=== PATIENT | female | born 1930 | race Caucasian/White ===

== ENCOUNTER → 2018-07-17 | Outpatient (CLI) | payer MEDICARE, OTHER ==
[~2018-07-17] VITALS: Ht 157.5 cm; Wt 62.1 kg
[~2018-07-17] MED LIST: ACHD5005 PO; ALEN70SO3 PO; ALN70T PO; AMOX-355 PO; ASPI-586 PO; ASPI-84 PO; ASPI1CPM6 PO; ATOR10TA; CALC-80; CHOL100011; DPAS20025; DPAS20025 PO; E400C; EZET10TA5; FEXO180T; FLUT16SP22 NSEACH; FOLI1TAB7; GABA-488 PO; GBPN100C; HYDR-34; HYDR2TAB6 PO; JUICE PLUS GARDEN PO; JUICE PLUS ORCHARD PO; MESA800T3 PO; MNTL10T PO; MONT10TA24 PO; MSL400TEC; NF-ESOM40C; POLY119P5 PO; PRD20T PO; SIMV20TA3 PO; TRIA16.5; UBID100C8; VERA180C2 PO; VERA180C4 PO
[2018-07-17 15:38] VITALS: BP 123/80
[2018-07-17 16:17] LABS: BASOPHILS # (AUTO) 0.2 10^3/uL (0.0-0.1); BASOPHILS % (AUTO) 2 % (0-10); EOSINOPHILS % (AUTO) 11 % (0-10); HEMATOCRIT 35 % (35-52); HEMOGLOBIN 11.3 G/DL (11.5-16.0); LYMPHOCYTES # (AUTO) 2.2 X 10^3 (1.0-4.0); LYMPHOCYTES % (AUTO) 23 % (12-44); MEAN CORPUSCULAR HEMOGLOBIN 32 PG (25-34); MEAN CORPUSCULAR HGB CONC 33 G/DL (32-36); MEAN CORPUSCULAR VOLUME 97 FL (80-99); MEAN PLATELET VOLUME 9.6 FL (7.4-10.4); MONOCYTES # (AUTO) 1.5 X 10^3 (0.0-1.0); MONOCYTES % (AUTO) 16 % (0-12); NEUTROPHILS # (AUTO) 4.4 X 10^3 (1.8-7.8); NEUTROPHILS % (AUTO) 48 % (42-75); PLATELET COUNT 378 10^3/uL (130-400); RED BLOOD COUNT 3.57 10^6/uL (4.35-5.85); WHITE BLOOD COUNT 9.2 10^3/uL (4.3-11.0)
[2018-07-17 16:23] LABS: BILIRUBIN,URINE NEGATIVE (NEGATIVE); CLARITY,URINE VERY CLOUDY; COLOR,URINE YELLOW; GLUCOSE, URINE (UA) NEGATIVE (NEGATIVE); KETONES,URINE NEGATIVE (NEGATIVE); LEUKOCYTE ESTERASE ,URINE 3+ (NEGATIVE); NITRITE,URINE POSITIVE (NEGATIVE); PH,URINE 6 (5-9); PROTEIN,URINE 2+ (NEGATIVE); UROBILINOGEN,URINE NORMAL (NORMAL)
[2018-07-17 16:32] LABS: BUN/CREATININE RATIO 20; CALCIUM 9.8 MG/DL (8.5-10.1); CARBON DIOXIDE 22 MMOL/L (21-32); CHLORIDE 110 MMOL/L (98-107); CREATININE SERUM 0.82 MG/DL (0.60-1.30); GFR ESTIMATED > 60; GLUCOSE 105 MG/DL (70-105); POTASSIUM 4.4 MMOL/L (3.6-5.0); SODIUM 141 MMOL/L (135-145)
[2018-07-17 16:35] LABS: BACTERIA,URINE LARGE /HPF; WBC,URINE TNTC /HPF
== END ==
LOC: PREOP 15:07
PROVIDERS: ATTEND Obstetrics & Gynecology
DX: Z01.812 Encounter for preprocedural laboratory examination (principal); Z11.2 Encounter for screening for other bacterial diseases; N81.4 Uterovaginal prolapse, unspecified; R82.998 Other abnormal findings in urine
CPT/HCPCS: 36415; 80048; 81000; 85025; 87077; 87081; 87088

== ENCOUNTER 2018-07-24 09:40 | Day surgery (SDC) | payer MEDICARE, OTHER ==
[~2018-07-24] VITALS: Ht 157.5 cm; Wt 62.4 kg
[2018-07-24] VITALS (8 sets, daily range): BP systolic 102–169; BP diastolic 61–95
[2018-07-24] MEDS ORDERED: NS (IVPB) 50 ML ONE (10:06)
[2018-07-24] MEDS ORDERED: ceFAZolin 1,000 MG/10 ML (ANCEF) VIAL ONE (10:06)
[2018-07-24] MEDS ORDERED: NS (IVPB) 100 ML ONE (10:08)
[2018-07-24] MEDS ORDERED: ESTROGENS CONJ. CREAM 30 GM (PREMARIN) TUBE ONE (10:08)
[2018-07-24] MEDS ORDERED: VASOPRESSIN INJECTION 20 UNIT/ML VIAL ONE (10:08)
[2018-07-24] MEDS ORDERED: BUPIVACAINE 0.25% 30 ML (SENSORCAINE) VIAL ONE (10:09)
[2018-07-24] MEDS: LACTATED RINGERS 1,000 ML IV PRN ×2 (10:12→12:15)
[2018-07-24] MEDS ORDERED: LIDOCAINE PF 2% 5 ML (XYLOCAINE) VIAL ONE (10:14)
[2018-07-24] MEDS ORDERED: ONDANSETRON 4 MG/2 ML (SDV) Z0FRAN ONE (10:14)
[2018-07-24] MEDS ORDERED: LACTATED RINGERS 1,000 ML IV ONE (10:14)
[2018-07-24] MEDS ORDERED: proPOfol 200 MG/20 ML (DIPRIVAN) VIAL IV ONE (10:14)
[2018-07-24] MEDS ORDERED: MIDAZOLAM 2 MG/2 ML (VERSED) VIAL ONE (10:15)
[2018-07-24] MEDS ORDERED: ceFAZolin INJECTION 1,000 MG in NS (IVPB) 50 ML IV ONE (10:15)
[2018-07-24] MEDS ORDERED: fentaNYL INJECTION 100 MCG/2 ML AMP ONE ×3 (10:15→13:39)
--- NOTE | 2018-07-24 10:21 | Progress Note-Pre Operative ---
Pre-Operative Progress Note H&P Reviewed The H&P was reviewed, patient examined and no changes noted. Date Seen by Provider: Jul 24, 2018 Time Seen by Provider: 10:15 Date H&P Reviewed: Jul 24, 2018 Time H&P Reviewed: 10:00 Pre-Operative Diagnosis: COMPLETE UTEROVAGINAL PROLAPSE FER MCGINNIS DO Jul 24, 2018 10:21
--- OUTSIDE RECORDS SUMMARY | 2018-07-24 10:23 | XMS REPORT | Continuity of Care Document ---
Author Author [facility] Organization [facility] Address Unknown Phone Unavailable Allergies Active Description Code Type Severity Reaction Onset Reported/Identified Relationship to Patient Clinical Status Yes SULFA (SULFONAMIDE ANTIBIOTICS) UNKNOWN UNKNOWN Yes Sulfa (Sulfonamide Antibiotics) [id number] Drug Allergy Mild N/V, PAIN Medications Medication Packaging Start Date Stop Date Route Dosage Sig ONDANSETRON VIAL INJ 4 MG/2CC (ZOFRAN 2CC VIAL) MG 04/13/2018 04/13/2018 PRN ONCE NORMAL SALINE 500CC IV BAG INJ 0.9 % (NS 500CC IV BAG) ml 04/13/2018 04/13/2018 ONCE&2020 IBUPROFEN TAB 600 MG (MOTRIN) MG 04/13/2018 PRN ONCE NORMAL SALINE 500CC IV BAG INJ 0.9 % (NS 500CC IV BAG) ml 04/13/2018 04/13/2018 ONCE&2142 CEFTRIAXONE PREMIX IV BAG IV 1 GM/50CC (ROCEPHIN PREMIX IV BAG) GM 04/13/2018 04/13/2018 ONCE&2142 ACETAMINOPHEN ORAL TABLET 325mg(Tylenol) MG 04/13/2018 05/13/2018 PRN EVERY 4 Hour GABAPENTIN CAP 300 MG (NEURONTIN) MG 04/13/2018 05/13/2018 QID&0800,1200,1700,2200 ONDANSETRON VIAL INJ 4 MG/2CC (ZOFRAN 2CC VIAL) MG 04/13/2018 04/20/2018 PRN Q4H NORMAL SALINE 250CC IV BAG INJ 0.9 % (NS 250CC IV BAG) ml 04/13/2018 04/17/2018 EVERY 24 Hour&2202 NORMAL SALINE 500CC IV BAG INJ 0.9 % (NS 500CC IV BAG) ml 04/13/2018 04/13/2018 ONCE&2227 D5W 250CC IV BAG INJ ml 04/13/2018 04/13/2018 EVERY 24 Hour&2246 LACTATED RINGERS 1000CC IV BAG INJ ml 04/13/2018 04/20/2018 CONTINUOUSEVERY 0 Hour LACTATED RINGERS 1000CC IV BAG INJ ml 04/13/2018 04/13/2018 ONCE&2255 LEVOFLOXACIN TAB 500 MG (LEVAQUIN) MG 04/13/2018 04/13/2018 ONCE&2303 LEVOFLOXACIN PREMIX IV BAG INJ 500 MG/100CC (LEVAQUIN IV PREMIX 100CC BAG) MG 04/14/2018 04/20/2018 Daily&0000 HYDROMORPHONE TAB 2 MG (DILAUDID) MG 04/14/2018 05/13/2018 TID&0800,1400,2000 CEFEPIME PREMIX BAG IV 1 GM/50CC (MAXIPIME PREMIX BAG) GM 04/14/2018 04/20/2018 BID&0800,1999 DIPYRIDAMOLE XR CAP 25 MG-200MG (AGGRENOX) CAP 04/14/2018 05/13/2018 Daily&0900 ASPIRIN 81MG CHEWABLE TAB 81 MG (BABY ASPIRIN) MG 04/14/2018 05/13/2018 Daily&0900 MESALAMINE TAB 1200 MG (LIALDA) MG 04/14/2018 05/13/2018 Daily&0900 CEFTRIAXONE PREMIX IV BAG IV 1 GM/50CC (ROCEPHIN PREMIX IV BAG) GM 04/14/2018 04/20/2018 Daily&0900 PANTOPRAZOLE VIAL INJ 40 MG (PROTONIX IV) MG 04/14/2018 04/23/2018 Daily&0900 LACTATED RINGERS 1000CC IV BAG INJ ml 04/14/2018 04/14/2018 ONCE&1009 PANTOPRAZOLE TAB 40 MG (PROTONIX) MG 04/14/2018 04/14/2018 ONCE&0900 HYDROMORPHONE TAB 2 MG (DILAUDID) MG 04/14/2018 04/19/2018 PRN TID DIPYRIDAMOLE XR CAP 25 MG-200MG (AGGRENOX) CAP 04/14/2018 04/21/2018 BID&0800,1999 Docusate sodium 100mg oral capsule (COLACE) MG 04/14/2018 05/14/2018 BID&0800,2000 SIMVASTATIN TAB 10 MG (ZOCOR) MG 05/13/2018 QPM&2000 MILK OF MAGNESIA LIQ ml 04/14/2018 05/14/2018 PRN BID D5W 250CC IV BAG INJ ml 04/15/2018 04/15/2018 ONCE& 0035 LACTATED RINGERS 1000CC IV BAG INJ ml 04/15/2018 04/22/2018 CONTINUOUSEVERY 0 Hour LACTATED RINGERS 1000CC IV BAG INJ ml 04/16/2018 04/23/2018 CONTINUOUSEVERY 0 Hour CALMOSEPTINE OINT TUBE (RISAMINE OINT) sanjay 04/17/2018 04/24/2018 PRN QID LACTOBACILLUS BULGARIS TAB (LACTINEX BULGARIS) tab 04/17/2018 04/27/2018 QID&0800,1200,1700,2200 Normal Saline 1000cc W/KCl 20mEq ml 04/17/2018 04/24/2018 CONTINUOUSEVERY 0 Hour LEVALBUTEROL LIQ 1.25 MG/3ML (XOPENEX) MG 04/18/2018 04/18/2018 ONCE&0820 PANTOPRAZOLE TAB 40 MG (PROTONIX) MG 04/18/2018 04/24/2018 Daily&0900 FUROSEMIDE VIAL INJ 20 MG (LASIX VIAL) MG 04/18/2018 04/18/2018 ONCE&1122 HYDROMORPHONE TAB 2 MG (DILAUDID) MG 04/18/2018 04/23/2018 PRN TID ACETAMINOPHEN ORAL TABLET 325mg(Tylenol) MG 04/18/2018 05/18/2018 PRN EVERY 6 Hour LACTOBACILLUS BULGARIS TAB (LACTINEX BULGARIS) tab 04/18/2018 04/28/2018 QID&0800,1200,1700,2200 CALMOSEPTINE OINT TUBE (RISAMINE OINT) sanjay 04/18/2018 04/25/2018 PRN QID GABAPENTIN CAP 300 MG (NEURONTIN) MG 04/18/2018 05/02/2018 QID&0800,1200,1700,2200 ONDANSETRON VIAL INJ 4 MG/2CC (ZOFRAN 2CC VIAL) MG 04/18/2018 04/25/2018 PRN Q4H SIMVASTATIN TAB 10 MG (ZOCOR) MG 05/01/2018 QPM&2000 CEFEPIME PREMIX BAG IV 1 GM/50CC (MAXIPIME PREMIX BAG) GM 04/18/2018 04/20/2018 BID&0800,2000 DIPYRIDAMOLE XR CAP 25 MG-200MG (AGGRENOX) CAP 04/19/2018 05/02/2018 Daily&0900 ASPIRIN ENTERIC COATED TAB 81 MG (BABY ASPIRIN EC) MG 04/19/2018 05/02/2018 Daily&0900 PANTOPRAZOLE TAB 40 MG (PROTONIX) MG 04/19/2018 05/02/2018 Daily&0900 CEFEPIME PREMIX BAG IV 1 GM/50CC (MAXIPIME PREMIX BAG) GM 04/21/2018 04/27/2018 Q12H&0900,2100 CEFEPIME PREMIX BAG IV 1 GM/50CC (MAXIPIME PREMIX BAG) GM 04/21/2018 04/28/2018 Q8H&0600,1400,2200 VERAPAMIL SR TAB 120 MG (VERELAN) MG 04/22/2018 04/22/2018 ONCE&0917 VERAPAMIL SR TAB 180 MG (VERELAN) MG 04/23/2018 05/06/2018 Daily&0900 GABAPENTIN CAP 300 MG (NEURONTIN) MG 05/10/2018 06/09/2018 QID&0800,1200,1700,2200 NORMAL SALINE 1000CC IV BAG INJ 0.9 % (NS 1000CC IV BAG) ml 05/10/2018 05/25/2018 CONTINUOUSEVERY 0 Hour ACETAMINOPHEN ORAL TABLET 325mg(Tylenol) MG 05/10/2018 05/17/2018 PRN QID ACETAMINOPHEN SUPPOS SUP 325 MG (TYLENOL) MG 05/10/2018 06/09/2018 PRN Q6H NORMAL SALINE 1000CC IV BAG INJ 0.9 % (NS 1000CC IV BAG) ml 05/10/2018 05/25/2018 CONTINUOUSEVERY 0 Hour HYDROMORPHONE TAB 2 MG (DILAUDID) MG 05/10/2018 06/09/2018 PRN TID SIMVASTATIN TAB 10 MG (ZOCOR) MG 05/23/2018 QPM&2000 SIMVASTATIN TAB 10 MG (ZOCOR) MG 06/08/2018 QHS&2100 LACTOBACILLUS BULGARIS TAB (LACTINEX BULGARIS) tab 05/10/2018 05/17/2018 QID&0800,1200,1700,2200 GABAPENTIN CAP 300 MG (NEURONTIN) MG 05/10/2018 05/24/2018 QID&0800,1200,1700,2200 Flu vacc [id number] 65yr up(PF)) IM syringe Fluzone HIGH DOSE ML 05/11/2018 05/11/2018 ONCE&0700 PNEUMONIA VACCINE INJ (PREVNAR-13) ml 05/11/2018 05/11/2018 ONCE&0700 CALMOSEPTINE OINT TUBE (RISAMINE OINT) sanjay 05/11/2018 05/17/2018 BID&0800,2000 DIPYRIDAMOLE XR CAP 25 MG-200MG (AGGRENOX) CAP 05/11/2018 06/09/2018 Daily&0900 ASPIRIN ENTERIC COATED TAB 81 MG (BABY ASPIRIN EC) MG 05/11/2018 06/09/2018 Daily&0900 FEXOFENADINE TAB 180 MG (TINO) MG 05/11/2018 06/09/2018 Daily&0900 PANTOPRAZOLE TAB 40 MG (PROTONIX) MG 05/11/2018 06/09/2018 Daily&0900 VERAPAMIL SR TAB 180 MG (VERELAN) MG 05/11/2018 06/09/2018 Daily&0900 Flu vacc [id number] 6mos up(PF) IM syringe(Fluarix QUAD) Adult ML 05/11/2018 05/11/2018 ONCE&0927 Problems Date Dx Coded Attending Type Code Diagnosis Diagnosed By 05/26/2016 CATHRYN VELASCO MD Ot J35.3 HYPERTROPHY OF TONSILS WITH HYPERTROPHY 05/26/2016 CATHRYN VELASCO MD Ot Z01.812 ENCOUNTER FOR PREPROCEDURAL LABORATORY E 05/26/2016 CATHRYN VELASCO MD Ot Z01.818 ENCOUNTER FOR OTHER PREPROCEDURAL EXAMIN 05/26/2016 CATHRYN VELACSO MD Ot Z11.2 ENCOUNTER FOR SCREENING FOR OTHER BACTER 05/27/2016 CATHRYN VELASCO MD Ot J35.3 HYPERTROPHY OF TONSILS WITH HYPERTROPHY 05/27/2016 CATHRYN VELASCO MD Ot Z01.812 ENCOUNTER FOR PREPROCEDURAL LABORATORY E 05/27/2016 CATHRYN VELASCO MD Ot Z01.818 ENCOUNTER FOR OTHER PREPROCEDURAL EXAMIN 05/27/2016 CATHRYN VELASCO MD Ot Z11.2 ENCOUNTER FOR SCREENING FOR OTHER BACTER 06/02/2016 CATHRYN VELASCO MD Ot J32.0 CHRONIC MAXILLARY SINUSITIS 06/02/2016 CATHRYN VELASCO MD Ot 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 06/02/2016 ROD MCNAMARA, CATHRYN Ricketts Ot J32.2 CHRONIC ETHMOIDAL SINUSITIS 06/02/2016 ROD MCNAMARA, CATHRYN Ricketts Ot 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 06/15/2016 ROD MCNAMARA, CATHRYN Ricketts Ot J32.0 CHRONIC MAXILLARY SINUSITIS 06/15/2016 ROD MCNAMARA, CATHRYN Ricketts Ot 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 06/15/2016 ROD MCNAMARA, CATHRYN Ricketts Ot J32.2 CHRONIC ETHMOIDAL SINUSITIS 06/15/2016 ROD MCNAMARA, CATHRYN Ricketts Ot 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 01/12/2017 MCGINNIS DO, FER C Ot V76.12 OTH SCREEN MAMMO-MALIGN NEOPLASM OF CELINE 01/12/2017 MCGINNIS DO, FER C Ot V76.12 OTH SCREEN MAMMO-MALIGN NEOPLASM OF CELINE 04/21/2017 MCGINNIS DO, FER C Ot V76.12 OTH SCREEN MAMMO-MALIGN NEOPLASM OF CELINE 04/21/2017 MCGINNIS DO, FER C Ot V76.12 OTH SCREEN MAMMO-MALIGN NEOPLASM OF CELINE 05/03/2017 MCGINNIS DO, FER C Ot V76.12 OTH SCREEN MAMMO-MALIGN NEOPLASM OF CELINE 05/03/2017 MCGINNIS DO, FER C Ot V76.12 OTH SCREEN MAMMO-MALIGN NEOPLASM OF CELINE 03/14/2018 Shine, Yolis W 729.5 PAIN IN LIMB 03/14/2018 Shine, Yolis A 780.93 MEMORY LOSS 03/14/2018 Shine, Yolis W M79.604 PAIN IN RIGHT LEG 03/14/2018 Shine, Yolis A R41.3 OTHER AMNESIA 03/14/2018 Shine, Yolis W 729.5 PAIN IN LIMB 03/14/2018 Shine, Yolis A 780.93 MEMORY LOSS 03/14/2018 Shine, Yolis W M79.604 PAIN IN RIGHT LEG 03/14/2018 Shine, Yolis A R41.3 OTHER AMNESIA 03/27/2018 MCGINNIS DO, FER C Ot V76.12 OTH SCREEN MAMMO-MALIGN NEOPLASM OF [place]EL[place] 03/27/2018 MCGINNIS DO, FER C Ot V76.12 OTH SCREEN MAMMO-MALIGN NEOPLASM OF CELINE 04/13/2018 Shine, Yolis W 599.0 URINARY TRACT INFECTION, SITE NOT SPECIFIED 04/13/2018 Shine, Yolis W N39.0 URINARY TRACT INFECTION, SITE NOT SPECIFIED 04/13/2018 Shine, Yolis W 038.9 UNSPECIFIED SEPTICEMIA 04/13/2018 Shine, Yolis W 599.0 URINARY TRACT INFECTION, SITE NOT SPECIFIED 04/13/2018 Shine, Yolis W 799.02 HYPOXEMIA 04/13/2018 Shine, Yolis W A41.9 SEPSIS, UNSPECIFIED ORGANISM 04/13/2018 Shine, Yolis W N39.0 URINARY TRACT INFECTION, SITE NOT SPECIFIED 04/13/2018 Shine, Yolis W R09.02 HYPOXEMIA 04/17/2018 Shine, Yolis W 038.9 UNSPECIFIED SEPTICEMIA 04/17/2018 Shine, Yolis W 599.0 URINARY TRACT INFECTION, SITE NOT SPECIFIED 04/17/2018 Shine, Yolis W 799.02 HYPOXEMIA 04/17/2018 Shine, Yolis W A41.9 SEPSIS, UNSPECIFIED ORGANISM 04/17/2018 Shine, Yolis W N39.0 URINARY TRACT INFECTION, SITE NOT SPECIFIED 04/17/2018 Shine, Yolis W R09.02 HYPOXEMIA 04/18/2018 Shine, Yolis W 008.45 INTESTINAL INFECTION DUE TO CLOSTRIDIUM DIFFICILE 04/18/2018 [facility], Yolis A 038.42 04/18/2018 [facility], Yolis W 038.9 UNSPECIFIED SEPTICEMIA 04/18/2018 [facility], Yolis W 041.49 04/18/2018 Shine, Yolis W 272.4 OTHER AND UNSPECIFIED HYPERLIPIDEMIA 04/18/2018 [facility], Yolis W 401.0 04/18/2018 Shine, Yolis W 599.0 URINARY TRACT INFECTION, SITE NOT SPECIFIED 04/18/2018 Shine, Yolis W 729.5 04/18/2018 Shine, Yolis W 799.02 HYPOXEMIA 04/18/2018 Shine, Yolis W A04.72 ENTEROCOLITIS D/T CLOSTRIDIUM DIFFICILE, NOT SPCF RECUR 04/18/2018 Shine, Yoils A A41.51 SEPSIS DUE TO ESCHERICHIA COLI [E. COLI] 04/18/2018 Shine, Yolis W A41.9 SEPSIS, UNSPECIFIED ORGANISM 04/18/2018 Shine, Yolis W B96.20 UNSP ESCHERICHIA COLI THE CAUSE OF DISEASES CLASSD ELSWHR 04/18/2018 Shine, Yolis W E78.5 HYPERLIPIDEMIA, UNSPECIFIED 04/18/2018 Shine, Yolis W I10 ESSENTIAL (PRIMARY) HYPERTENSION 04/18/2018 Shine, Yolis W M79.604 PAIN IN RIGHT LEG 04/18/2018 [facility], Yolis W N39.0 URINARY TRACT INFECTION, SITE NOT SPECIFIED 04/18/2018 [facility], Yolis W R09.02 HYPOXEMIA 04/23/2018 [facility], Yolis W 008.45 04/23/2018 [facility], Yolis A 038.42 04/23/2018 [facility], Yolis W 041.49 04/23/2018 [facility], Yolis W 272.4 OTHER AND UNSPECIFIED HYPERLIPIDEMIA 04/23/2018 [facility], Yolis W 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, RIGHT SIDE 04/23/2018 Shine, Yolis W N39.0 URINARY TRACT INFECTION, SITE NOT SPECIFIED 04/23/2018 [facility], Yolis W R53.1 WEAKNESS 05/12/2018 [facility], Yolis A 008.45 05/12/2018 Shine, Yolis W 272.4 OTHER AND UNSPECIFIED HYPERLIPIDEMIA 05/12/2018 Yolis Riojas W 276.51 05/12/2018 Yolis Riojas W 288.60 LEUKOCYTOSIS, UNSPECIFIED 05/12/2018 Yolis Riojas W 338.2 CHRONIC PAIN 05/12/2018 Shine, Yolis W 401.0 05/12/2018 Yolis Riojas W 729.5 PAIN IN LIMB 05/12/2018 Yolis Riojas A 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, RECURRENT 05/12/2018 Yolis Riojas W D72.829 ELEVATED WHITE BLOOD CELL COUNT, UNSPECIFIED 05/12/2018 Yolis Riojas W E78.5 HYPERLIPIDEMIA, UNSPECIFIED 05/12/2018 Yolis Riojas W E86.0 DEHYDRATION 05/12/2018 Yolis Riojas W G89.29 OTHER CHRONIC PAIN 05/12/2018 Yolis Riojas W I10 ESSENTIAL (PRIMARY) HYPERTENSION 05/12/2018 Yolis Riojas W M79.604 PAIN IN RIGHT LEG 05/12/2018 Yolis Riojas W 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), AND CEREBRAL INFARCTION WITHOUT RESIDUAL DEFICITS 05/12/2018 Yolis Riojas W Z86.73 PRSNL HX OF TIA (TIA), AND CEREB INFRC W/O RESID DEFICITS 05/20/2018 Jc Fernandez 599.0 URINARY TRACT INFECTION, SITE NOT SPECIFIED 05/20/2018 Jc Fernandez N39.0 URINARY TRACT INFECTION, SITE NOT SPECIFIED 07/17/2018 FER MCGINNIS DO Ot V76.12 OTH SCREEN MAMMO-MALIGN NEOPLASM OF CELINE 07/17/2018 FER MCGINNIS DO Ot V76.12 OTH SCREEN MAMMO-MALIGN NEOPLASM OF CELINE 07/18/2018 FER MCGINNIS DO Ot N81.4 UTEROVAGINAL PROLAPSE, UNSPECIFIED 07/18/2018 FER MCGINNIS DO Ot R82.998 OTHER ABNORMAL FINDINGS IN URINE 07/18/2018 FER MCGINNIS DO Ot Z01.812 ENCOUNTER FOR PREPROCEDURAL LABORATORY E 07/18/2018 FER MCGINNIS DO Ot Z11.2 ENCOUNTER FOR SCREENING FOR OTHER BACTER Procedures There is no data. Results Test Result Range Complete blood count (CBC) with automated white blood cell (WBC) differential - 05/26/16 13:00 Blood leukocytes automated count (number/volume) 12.8 10*3/uL 4.3-11.0 Blood erythrocytes automated count (number/volume) 4.19 10*6/uL 4.35-5.85 Venous blood hemoglobin measurement (mass/volume) 13.2 g/dL 11.5-16.0 Blood hematocrit (volume fraction) 40 % 35-52 Automated erythrocyte mean corpuscular volume 94 [foz_us] 80-99 Automated erythrocyte mean corpuscular hemoglobin (mass per erythrocyte) 32 pg 25-34 Automated erythrocyte mean corpuscular hemoglobin concentration measurement ( mass/volume) 33 g/dL 32-36 Automated erythrocyte distribution width ratio 16.1 % 10.0-14.5 Automated blood platelet count (count/volume) 338 10*3/uL 130-400 Automated blood platelet mean volume measurement 10.0 [foz_us] 7.4-10.4 Automated blood neutrophils/100 leukocytes 64 % 42-75 Automated blood lymphocytes/100 leukocytes 16 % 12-44 Blood monocytes/100 leukocytes 12 % 0-12 Automated blood eosinophils/100 leukocytes 7 % 0-10 Automated blood basophils/100 leukocytes 1 % 0-10 Blood neutrophils automated count (number/volume) 8.2 10*3 1.8-7.8 Blood lymphocytes automated count (number/volume) 2.0 10*3 1.0-4.0 Blood monocytes automated count (number/volume) 1.6 10*3 0.0-1.0 Automated eosinophil count 0.9 10*3/uL 0.0-0.3 Automated blood basophil count (count/volume) 0.2 10*3/uL 0.0-0.1 Whole blood basic metabolic panel - 05/26/16 13:00 Serum or plasma sodium measurement (moles/volume) 140 mmol/L 135-145 Serum or plasma potassium measurement (moles/volume) 4.2 mmol/L 3.6-5.0 Serum or plasma chloride measurement (moles/volume) 109 mmol/L 98-107 Carbon dioxide 20 mmol/L 21-32 Serum or plasma anion gap determination (moles/volume) 11 mmol/L 5-14 Serum or plasma urea nitrogen measurement (mass/volume) 16 mg/dL 7-18 Serum or plasma creatinine measurement (mass/volume) 0.91 mg/dL 0.60-1.30 Serum or plasma urea nitrogen/creatinine mass ratio 18 NRG Serum or plasma creatinine measurement with calculation of estimated glomerular filtration rate 59 NRG Serum or plasma glucose measurement (mass/volume) 91 mg/dL 70-105 Serum or plasma calcium measurement (mass/volume) 9.5 mg/dL 8.5-10.1 Methicillin resistant Staphylococcus aureus (MRSA) screening culture - 13:00 Methicillin resistant Staphylococcus aureus (MRSA) screening culture NEG NRG Thyroid Stimulating Hormone - 09/08/16 08:02 TSH 2.55 mIU/mL 0.32-5.00 Urinalysis - 09/08/16 10:37 Icotest N/A Negative Urine Volume Urine Volume Sufficient (10mL) Urine Yeast No Yeast present Urine-Appearance Cloudy Clear Urine-Bacteria 4+ Urine-Bilirubin Negative Negative Urine-Blood Trace-intact Negative Urine-Color Yellow Colorless-Lt. Yellow Urine-Glucose Negative Negative Urine-Ketones Negative Negative Urine-Leukocytes 3+ Negative Urine-Nitrite Positive Negative Urine-Other Culture to follow Urine-pH 5.5 5-8.5 Urine-Protein Trace Negative Urine-RBC Negative Urine-Specific [place] 1.015 1.000-1.030 Urine-WBC TNTC Urobilinogen 0.2 E.U./dL 0.2-1.0 Urine Culture - 09/08/16 10:37 PRELIM CULTURE RESULTS >100,000 Gram Negative MATTY / ID to Follow [id number],000 Gram Positive Mixed Caterina Probable Skin Contaminant MEDIA PLATED Setup at 11:19 on 09/08/2016 CULTURE SOURCE VOID Sensi - 09/08/16 10:37 FINAL CULTURE RESULTS Escherichia coli (Isolate 1) Ampicillin/Sulbactam >16/8 Ampicillin >16 Amoxicillin/K Clavulanate >16/8 Ceftriaxone <=8 Ciprofloxacin >2 Nitrofurantoin <=32 Gentamicin <=4 Levofloxacin >4 Trimethoprim/ Sulfamethoxazole <=2/38 Tetracycline <=4 Amikacin <=16 Aztreonam <=8 Ceftazidime <=1 Ceftazidime/K Clavulanate <=0.25 Cephalothin 16 Cefotaxime <=2 Cefotaxime/K Clavulanate <=0.5 Cefoxitin <=8 Cefazolin <=8 Cefepime <=8 Cefuroxime <=4 Ertapenem <=1 Imipenem <=4 Meropenem <=4 Piperacillin/Tazobactam >64 Piperacillin >64 Tigecycline <=2 Tobramycin <=4 Comprehensive Metabolic Panel - 12/07/16 13:15 Albumin 3.8 g/dL 3.6-5.1 ALP 47 U/L 35-130 ALT 11 U/L 6-45 Anion Gap 16 6-14 AST 22 U/L 2-40 BUN 15 mg/dL 5-25 Calcium 9.6 mg/dL 8.3-10.4 Chloride 106 mmol/L 95-114 CO2 24 mEq/L 22-33 Creat 1.11 mg/dL 0.50-1.50 eGFR 47 mL/min/1.73m2 >59 Globulin 4.4 g/dL 2.3-3.5 Glucose 114 mg/dL 70-110 Osmo 295 280-295 Potassium 4.4 mmol/L 3.5-5.3 Sodium 142 mmol/L 134-148 TBil 0.6 mg/dL 0.2-1.2 TP 8.2 g/dL 6.0-8.3 Urinalysis - 12/09/16 13:48 Icotest N/A Negative Urine Volume Urine Volume Sufficient (10mL) Urine-Appearance Cloudy Clear Urine-Bacteria 3+ Urine-Bilirubin Negative Negative Urine-Blood 1+ Negative Urine-Color Yellow Colorless-Lt. Yellow Urine-Epithelial Cells 5-10/HPF Urine-Glucose Negative Negative Urine-Ketones Negative Negative Urine-Leukocytes 3+ Negative Urine-Nitrite Positive Negative Urine-Other Culture to follow Urine-pH 5.5 5-8.5 Urine-Protein 1+ Negative Urine-Specific [place] 1.015 1.000-1.030 Urine-WBC TNTC Urobilinogen 0.2 E.U./dL 0.2-1.0 Thyroid Stimulating Hormone - 03/02/17 06:26 TSH 2.39 mIU/mL 0.32-5.00 Urine Culture - 03/02/17 06:26 PRELIM CULTURE RESULTS >100,000 Gram Negative Non-Lactose Director Of Outreach MATTY / ID to Follow MEDIA PLATED Setup at 07:12 on 03/02/2017 CULTURE SOURCE Void Sensi - 03/02/17 06:26 FINAL CULTURE RESULTS Proteus mirabilis (Isolate 1) Ampicillin/Sulbactam <=8/4 Ampicillin <=8 Amoxicillin/K Clavulanate <=8/4 Ceftriaxone <=8 Ciprofloxacin <=1 Nitrofurantoin >64 Gentamicin <=4 Levofloxacin <=2 Trimethoprim/ Sulfamethoxazole <=2/38 Tetracycline >8 Amikacin <=16 Aztreonam <=8 Ceftazidime <=1 Ceftazidime/K Clavulanate <=0.25 Cephalothin <=8 Cefotaxime <=2 Cefotaxime/K Clavulanate <=0.5 Cefoxitin <=8 Cefazolin <=8 Cefepime <=8 Cefuroxime <=4 Ertapenem <=1 Imipenem <=4 Meropenem <=4 Piperacillin/Tazobactam <=16 Piperacillin <=16 Tigecycline N/R Tobramycin <=4 Urinalysis - 07/25/17 13:22 Icotest N/A Negative Urine Volume Urine Volume Sufficient (10mL) Urine Yeast No Yeast present Urine-Appearance Cloudy Clear Urine-Bacteria 2+ Urine-Bilirubin Negative Negative Urine-Blood Trace-intact Negative Urine-Color Yellow Colorless-Lt. Yellow Urine-Epithelial Cells 0-5/HPF Urine-Glucose Negative Negative Urine-Ketones Negative Negative Urine-Leukocytes 1+ Negative Urine-Nitrite Negative Negative Urine-Other Culture to follow Urine-pH 6.5 5-8.5 Urine-Protein Negative Negative Urine-RBC 2-5/HPF Urine-Specific [place] 1.015 1.000-1.030 Urine-WBC TNTC Urobilinogen 0.2 E.U./dL 0.2-1.0 Urine Culture - 07/25/17 13:22 PRELIM CULTURE RESULTS 20,000-50,000 Gram Positive Mixed Caterina [id number] Skin Contaminant FINAL CULTURE RESULTS >100,000 Gram Positive Mixed Caterina [id number] Skin Contaminant MEDIA PLATED Setup at 14:33 on 07/25/2017 CULTURE SOURCE urine Thyroid Stimulating Hormone - 12/19/17 06:58 TSH 3.19 mIU/mL 0.32-5.00 Urinalysis - 01/25/18 11:42 Icotest N/A Negative Urine-Appearance Slightly Cloudy Clear Urine-Bacteria 1+ Urine-Bilirubin Negative Negative Urine-Blood Negative Negative Urine-Color Yellow Colorless-Lt. Yellow Urine-Epithelial Cells 5-10/HPF Urine-Glucose Negative Negative Urine-Ketones Negative Negative Urine-Leukocytes 1+ Negative Urine-Nitrite Negative Negative Urine-Other Culture to follow Urine-pH 6.0 5-8.5 Urine-Protein Negative Negative Urine-RBC Negative Urine-Specific [place] 1.020 1.000-1.030 Urine-WBC 10-20/HPF Urobilinogen 0.2 E.U./dL 0.2-1.0 Urine Culture - 01/25/18 11:42 PRELIM CULTURE RESULTS >100,000 Alpha Hemolytic Gram Positive MATTY / ID to Follow MEDIA PLATED Setup at 12:06 on 01/25/2018 CULTURE SOURCE urine Sensi - 01/25/18 11:42 FINAL CULTURE RESULTS Enterococcus faecalis (Isolate 1) Ampicillin/Sulbactam <=8/4 Ampicillin <=2 Amoxicillin/K Clavulanate <=4/2 Ceftriaxone >32 Clindamycin >4 Cefoxitin Screen N/R Ciprofloxacin <=1 Daptomycin 1 Erythromycin >4 Nitrofurantoin <=32 Gentamicin 8 Gentamicin Synergy Screen <=500 Inducible Clindamycin N/R Levofloxacin <=1 Linezolid <=1 Moxifloxacin <=0.5 Oxacillin >2 Penicillin 2 Rifampin <=1 Streptomycin Synergy <=1000 Synercid N/R Trimethoprim/ Sulfamethoxazole >2/38 Tetracycline >8 Vancomycin 1 VIT B-12 - 03/14/18 13:21 Vitamin B12 1788.00 pg/mL 213.00-816.00 Urine Culture - 03/14/18 13:21 PRELIM CULTURE RESULTS No Growth 24 hours FINAL CULTURE RESULTS 50,000-100,000 Mixed Caterina Probable Skin Contaminant No Further Workup done MEDIA PLATED Setup at 15:21 on 03/14/2018 CULTURE SOURCE clean [id number] Urinalysis - 04/13/18 20:30 Icotest N/A Negative Urine Volume Urine Volume Sufficient (10mL) Urine-Appearance Turbid Clear Urine-Bacteria 4+ Urine-Bilirubin Negative Negative Urine-Blood 1+ Negative Urine-Color Yellow Colorless-Lt. Yellow Urine-Epithelial Cells 0-5/HPF Urine-Glucose Negative Negative Urine-Ketones Negative Negative Urine-Leukocytes 3+ Negative Urine-Nitrite Positive Negative Urine-Other Culture to follow Urine-pH 7.0 5-8.5 Urine-Protein Trace Negative Urine-RBC 2-5/HPF Urine-Specific [place] 1.020 1.000-1.030 Urine-WBC TNTC Urobilinogen 0.2 0.2-1.0 Mycoplasma - 04/13/18 20:30 Mycoplasma Negative Negative Blood Culture - 04/13/18 20:30 PRELIM CULTURE RESULTS [id number] culture Positive @ 0746. [id number] Stain showed Gram Negative Rods/Bacilli. MEDIA PLATED Setup at 20:49 on 04/[id number] Culture Media Position A10 CULTURE SOURCE drawn @ Left arm (IV start) Sensi - 04/13/18 20:30 FINAL CULTURE RESULTS Escherichia coli (Isolate 1) Ampicillin/Sulbactam >16/8 Ampicillin >16 Amoxicillin/K Clavulanate 16/8 Ceftriaxone <=8 Ciprofloxacin <=1 Nitrofurantoin <=32 Gentamicin <=4 Levofloxacin <=2 Trimethoprim/ Sulfamethoxazole <=2/38 Tetracycline <=4 Amikacin <=16 Aztreonam <=8 Ceftazidime <=1 Ceftazidime/K Clavulanate <=0.25 Cephalothin >16 Cefotaxime <=2 Cefotaxime/K Clavulanate <=0.5 Cefoxitin <=8 Cefazolin >16 Cefepime <=8 Cefuroxime 8 Ertapenem <=1 Imipenem <=4 Meropenem <=4 Piperacillin/Tazobactam <=16 Piperacillin >64 Tigecycline <=2 Tobramycin <=4 Blood Culture - 04/13/18 20:40 PRELIM CULTURE RESULTS Blood Culture Negative, No Growth Day 1 FINAL CULTURE RESULTS Blood Culture Negative, No Growth Day 5 MEDIA PLATED Setup at 20:49 on 04/13/[id number] Culture Media Position A11 CULTURE SOURCE drawn @ Right Arm BNP - 04/13/18 20:40 BNP 115.80 pg/ml 0.00-100.00 Blood Culture - 04/13/18 20:40 PRELIM CULTURE RESULTS Blood Culture Negative, No Growth Day 1 MEDIA PLATED Setup at 20:49 on 04/13/[id number] Culture Media Position A11 CULTURE SOURCE drawn @ Right Arm IFOBT Occult Blood - 04/13/18 23:03 IFOBT Occult Blood NEGATIVE Negative Urinalysis - 04/13/18 23:45 Icotest N/A Negative Urine Volume Urine Volume Sufficient (10mL) Urine-Appearance Turbid Clear Urine-Bacteria 4+ Urine-Bilirubin Negative Negative Urine-Blood 2+ Negative Urine-Color Yellow Colorless-Lt. Yellow Urine-Epithelial Cells 0-5/HPF Urine-Glucose Negative Negative Urine-Ketones Negative Negative Urine-Leukocytes 2+ Negative Urine-Nitrite Positive Negative Urine-Other Culture to follow; cath urine specimen Urine-pH 5.5 5-8.5 Urine-Protein 1+ Negative Urine-RBC 0-2/HPF Urine-Specific [place] 1.020 1.000-1.030 Urine-WBC TNTC Urobilinogen 0.2 0.2-1.0 Urine Culture - 04/13/18 23:45 MEDIA PLATED Setup at 00:22 on 04/14/2018 CULTURE SOURCE cath urine specimen Sensi - 04/13/18 23:45 FINAL CULTURE RESULTS Escherichia coli (Isolate 1) Ampicillin/Sulbactam >16/8 Ampicillin >16 Amoxicillin/K Clavulanate 16/8 Ceftriaxone <=8 Ciprofloxacin <=1 Nitrofurantoin <=32 Gentamicin <=4 Levofloxacin <=2 Trimethoprim/ Sulfamethoxazole <=2/38 Tetracycline <=4 Amikacin <=16 Aztreonam <=8 Ceftazidime <=1 Ceftazidime/K Clavulanate <=0.25 Cephalothin >16 Cefotaxime <=2 Cefotaxime/K Clavulanate <=0.5 Cefoxitin <=8 Cefazolin >16 Cefepime <=8 Cefuroxime 8 Ertapenem <=1 Imipenem <=4 Meropenem <=4 Piperacillin/Tazobactam <=16 Piperacillin >64 Tigecycline <=2 Tobramycin <=4 Arterial Blood Gas - 04/13/18 23:50 Base -5.00 mmol/L 1.80-4.20 HCO3 20 mmol/L 20-31 O2 Sat 97 2 L O2 % 95-100 pCO2 33 mm/Hg 35-45 pH 7.40 7.35-7.45 PO2 87 mm/Hg 80-95 Lactic Acid - 04/13/18 23:50 Lactic Acid 10.6 mg/dL 4.5-19.8 Comprehensive Metabolic Panel - 04/14/18 07:00 Albumin 3.7 g/dL 3.6-5.1 ALP 43 U/L 35-130 ALT 14 U/L 6-45 Anion Gap 17 6-14 AST 23 U/L 2-40 BUN 13 mg/dL 5-25 Calcium 8.7 mg/dL 8.3-10.4 Chloride 113 mmol/L 95-114 CO2 19 mEq/L 22-33 Creat 0.88 mg/dL 0.50-1.50 eGFR 61 mL/min/1.73m2 >59 Globulin 3.2 g/dL 2.3-3.5 Glucose 90 mg/dL 70-110 Osmo 297 280-295 Potassium 4.6 mmol/L 3.5-5.3 Sodium 144 mmol/L 134-148 TBil 0.9 mg/dL 0.2-1.2 TP 6.9 g/dL 6.0-8.3 Comprehensive Metabolic Panel - 04/15/18 07:00 Albumin 3.2 g/dL 3.6-5.1 ALP 43 U/L 35-130 ALT 14 U/L 6-45 Anion Gap 14 6-14 AST 19 U/L 2-40 BUN 10 mg/dL 5-25 Calcium 8.3 mg/dL 8.3-10.4 Chloride 110 mmol/L 95-114 CO2 19 mEq/L 22-33 Creat 0.77 mg/dL 0.50-1.50 eGFR 71 mL/min/1.73m2 >59 Globulin 2.8 g/dL 2.3-3.5 Glucose 137 mg/dL 70-110 Osmo 288 280-295 Potassium 4.1 mmol/L 3.5-5.3 Sodium 139 mmol/L 134-148 TBil 0.7 mg/dL 0.2-1.2 TP 6.0 g/dL 6.0-8.3 C.difficile, DNA Amplification - 04/15/18 17:02 C.difficile, DNA Amplification POSITIVE: DNA evidence of toxigenic C. difficile detected. Negative BMP - 04/16/18 06:50 Anion Gap 13 6-14 BUN 7 mg/dL 5-25 Calcium 8.5 mg/dL 8.3-10.4 Chloride 110 mmol/L 95-114 CO2 22 mEq/L 22-33 Creat 0.77 mg/dL 0.50-1.50 eGFR 71 mL/min/1.73m2 >59 Glucose 99 mg/dL 70-110 Osmo 289 280-295 Potassium 3.6 mmol/L 3.5-5.3 Sodium 141 mmol/L 134-148 BMP - 04/17/18 06:44 Anion Gap 14 6-14 BUN 8 mg/dL 5-25 Calcium 8.5 mg/dL 8.3-10.4 Chloride 110 mmol/L 95-114 CO2 22 mEq/L 22-33 Creat 0.73 mg/dL 0.50-1.50 eGFR 75 mL/min/1.73m2 >59 Glucose 82 mg/dL 70-110 Osmo 291 280-295 Potassium 3.6 mmol/L 3.5-5.3 Sodium 142 mmol/L 134-148 BNP - 04/18/18 08:06 BNP 577.40 pg/ml 0.00-100.00 BNP - 04/19/18 07:00 BNP 625.80 pg/ml 0.00-100.00 CBC with Auto Diff - 04/23/18 06:49 Baso% 0.20 % 0.00-2.50 Eos 0.5 K/uL 0.0-0.7 Eos% 3.8 % 0.0-7.0 Hct 35.3 % 36.0-46.0 Hgb 11.7 g/dL 13.0-15.0 Lym 1.55 K/uL 0.60-3.40 Lym% 11.6 % 10.0-50.0 MCH 32.1 pg 27.0-31.0 MCHC 33.1 g/dL 32.0-36.0 MCV 96.7 fL 80.0-97.0 [place]% 12.4 % 0.0-12.0 MPV 9.5 fL 7.4-10.0 [place]% 72.0 % 37.0-80.0 Plt 412 K/uL 150-400 RBC 3.65 M/uL 3.60-5.00 RDW 14.7 % 11.6-14.8 WBC 13.35 K/uL 5.00-10.00 [place] 9.60 K/uL 2.00-6.90 [place] 1.7 K/uL 0.0-0.9 Baso 0.0 K/uL 0.0-0.2 CBC with Auto Diff - 04/24/18 11:30 Baso% 0.20 % 0.00-2.50 Eos 0.4 K/uL 0.0-0.7 Eos% 2.8 % 0.0-7.0 Hct 31.9 % 36.0-46.0 Hgb 10.7 g/dL 13.0-15.0 Lym 1.96 K/uL 0.60-3.40 Lym% 14.0 % 10.0-50.0 MCH 32.4 pg 27.0-31.0 MCHC 33.5 g/dL 32.0-36.0 MCV 96.7 fL 80.0-97.0 [place]% 12.0 % 0.0-12.0 MPV 9.7 fL 7.4-10.0 [place]% 71.0 % 37.0-80.0 Plt 405 K/uL 150-400 RBC 3.30 M/uL 3.60-5.00 RDW 14.4 % 11.6-14.8 WBC 14.05 K/uL 5.00-10.00 [place] 9.99 K/uL 2.00-6.90 [place] 1.7 K/uL 0.0-0.9 Baso 0.0 K/uL 0.0-0.2 CBC with Auto Diff - 04/27/18 09:00 Baso% 0.30 % 0.00-2.50 Eos 0.4 K/uL 0.0-0.7 Eos% 3.3 % 0.0-7.0 Hct 34.3 % 36.0-46.0 Hgb 11.5 g/dL 13.0-15.0 Lym 1.26 K/uL 0.60-3.40 Lym% 10.6 % 10.0-50.0 MCH 32.5 pg 27.0-31.0 MCHC 33.5 g/dL 32.0-36.0 MCV 96.9 fL 80.0-97.0 [place]% 12.6 % 0.0-12.0 MPV 9.9 fL 7.4-10.0 [place]% 73.2 % 37.0-80.0 Plt 473 K/uL 150-400 RBC 3.54 M/uL 3.60-5.00 RDW 14.6 % 11.6-14.8 WBC 11.87 K/uL 5.00-10.00 [place] 8.70 K/uL 2.00-6.90 [place] 1.5 K/uL 0.0-0.9 Baso 0.0 K/uL 0.0-0.2 [facility] - 05[facility]18 09:00 Anion Gap 17 6-14 BUN 14 mg/dL 5-25 Calcium 9.2 mg/dL 8.3-10.4 Chloride 109 mmol/L 95-114 CO2 20 mEq/L 22-33 Creat 0.79 mg/dL 0.50-1.50 eGFR 69 mL/min/1.73m2 >59 Glucose 91 mg/dL 70-110 Osmo 291 280-295 Potassium 4.5 mmol/L 3.5-5.3 Sodium 141 mmol/L 134-148 [facility] - 05/10/18 13:50 Anion Gap 16 6-14 BUN 16 mg/dL 5-25 Calcium 9.1 mg/dL 8.3-10.4 Chloride 109 mmol/L 95-114 CO2 20 mEq/L 22-33 Creat 0.90 mg/dL 0.50-1.50 eGFR 59 mL/min/1.73m2 >59 Glucose 92 mg/dL 70-110 Osmo 292 280-295 Potassium 4.3 mmol/L 3.5-5.3 Sodium 141 mmol/L 134-148 C.difficile, DNA Amplification - 05/10/18 19:38 C.difficile, DNA Amplification POSITIVE: DNA evidence of toxigenic C. difficile detected. Negative Urinalysis - 05/11/18 02:35 Icotest N/A Negative Urine Volume Urine Volume Sufficient (10mL) Urine Yeast No Yeast present Urine-Appearance Slightly Cloudy Clear Urine-Bacteria 1+ Urine-Bilirubin Negative Negative Urine-Blood Trace-intact Negative Urine-Color Yellow Colorless-Lt. Yellow Urine-Epithelial Cells TNTC Urine-Glucose Negative Negative Urine-Ketones Negative Negative Urine-Leukocytes 1+ Negative Urine-Mucus 2+ Urine-Nitrite Negative Negative Urine-Other Culture to follow Urine-pH 5.5 5-8.5 Urine-Protein Trace Negative Urine-RBC 2-5/HPF Urine-Specific [place] 1.020 1.000-1.030 Urine-WBC 10-20/HPF Urobilinogen 0.2 0.2-1.0 Urine Culture - 05/11/18 02:35 PRELIM CULTURE RESULTS >100,000 Mixed Caterina. FINAL CULTURE RESULTS >100,000 Mixed Caterina. Probable Contaminant. MEDIA PLATED Setup at 02:55 on 05/11/2018 CULTURE SOURCE void Comprehensive Metabolic Panel - 05/11/18 06:50 Albumin 3.6 g/dL 3.6-5.1 ALP 39 U/L 35-130 ALT 6 U/L 6-45 Anion Gap 15 6-14 AST 12 U/L 2-40 BUN 13 mg/dL 5-25 Calcium 8.8 mg/dL 8.3-10.4 Chloride 111 mmol/L 95-114 CO2 20 mEq/L 22-33 Creat 0.84 mg/dL 0.50-1.50 eGFR 64 mL/min/1.73m2 >59 Globulin 3.0 g/dL 2.3-3.5 Glucose 93 mg/dL 70-110 Osmo 293 280-295 Potassium 3.7 mmol/L 3.5-5.3 Sodium 142 mmol/L 134-148 TBil 0.5 mg/dL 0.2-1.2 TP 6.6 g/dL 6.0-8.3 [facility] - 05/12/18 07:00 Anion Gap 17 6-14 BUN 9 mg/dL 5-25 Calcium 9.0 mg/dL 8.3-10.4 Chloride 108 mmol/L 95-114 CO2 21 mEq/L 22-33 Creat 0.74 mg/dL 0.50-1.50 eGFR 74 mL/min/1.73m2 >59 Glucose 90 mg/dL 70-110 Osmo 292 280-295 Potassium 3.5 mmol/L 3.5-5.3 Sodium 142 mmol/L 134-148 [facility] - 05/14/18 09:22 Anion Gap 17 6-14 BUN 16 mg/dL 5-25 Calcium 9.4 mg/dL 8.3-10.4 Chloride 114 mmol/L 95-114 CO2 19 mEq/L 22-33 Creat 0.84 mg/dL 0.50-1.50 eGFR 64 mL/min/1.73m2 >59 Glucose 88 mg/dL 70-110 Osmo 302 280-295 Potassium 3.6 mmol/L 3.5-5.3 Sodium 146 mmol/L 134-148 Urinalysis - 05/19/18 08:54 Icotest N/A Negative Urine Volume Urine Volume Sufficient (10mL) Urine Yeast No Yeast present Urine-Appearance Cloudy Clear Urine-Bacteria 4+ Urine-Bilirubin Negative Negative Urine-Blood Trace-intact Negative Urine-Color Yellow Colorless-Lt. Yellow Urine-Epithelial Cells 5-10/HPF Urine-Glucose Negative Negative Urine-Ketones Negative Negative Urine-Leukocytes 3+ Negative Urine-Nitrite Positive Negative Urine-Other Culture to follow Urine-pH 7.5 5-8.5 Urine-Protein 1+ Negative Urine-RBC 0-2/HPF Urine-Specific [place] 1.015 1.000-1.030 Urine-WBC TNTC Urobilinogen 0.2 E.U./dL 0.2-1.0 Comprehensive Metabolic Panel - 05/20/18 07:38 Albumin 3.6 g/dL 3.6-5.1 ALP 41 U/L 35-130 ALT 9 U/L 6-45 Anion Gap 15 6-14 AST 15 U/L 2-40 BUN 11 mg/dL 5-25 Calcium 9.3 mg/dL 8.3-10.4 Chloride 105 mmol/L 95-114 CO2 20 mEq/L 22-33 Creat 0.92 mg/dL 0.50-1.50 eGFR 58 mL/min/1.73m2 >59 Globulin 3.5 g/dL 2.3-3.5 Glucose 103 mg/dL 70-110 Osmo 281 280-295 Potassium 3.9 mmol/L 3.5-5.3 Sodium 136 mmol/L 134-148 TBil 0.5 mg/dL 0.2-1.2 TP 7.1 g/dL 6.0-8.3 [facility] - 05/21/18 09:15 Anion Gap 14 6-14 BUN 13 mg/dL 5-25 Calcium 9.2 mg/dL 8.3-10.4 Chloride 107 mmol/L 95-114 CO2 24 mEq/L 22-33 Creat 0.96 mg/dL 0.50-1.50 eGFR 55 mL/min/1.73m2 >59 Glucose 106 mg/dL 70-110 Osmo 292 280-295 Potassium 4.1 mmol/L 3.5-5.3 Sodium 141 mmol/L 134-148 [facility] - 05/24/18 10:50 Anion Gap 14 6-14 BUN 15 mg/dL 5-25 Calcium 9.3 mg/dL 8.3-10.4 Chloride 110 mmol/L 95-114 CO2 21 mEq/L 22-33 Creat 0.82 mg/dL 0.50-1.50 eGFR 66 mL/min/1.73m2 >59 Glucose 124 mg/dL 70-110 Osmo 293 280-295 Potassium 4.2 mmol/L 3.5-5.3 Sodium 141 mmol/L 134-148 BMP - 05/28/18 09:40 Anion Gap 13 6-14 BUN 17 mg/dL 5-25 Calcium 9.6 mg/dL 8.3-10.4 Chloride 110 mmol/L 95-114 CO2 23 mEq/L 22-33 Creat 0.91 mg/dL 0.50-1.50 eGFR 58 mL/min/1.73m2 >59 Glucose 112 mg/dL 70-110 Osmo 295 280-295 Potassium 4.3 mmol/L 3.5-5.3 Sodium 142 mmol/L 134-148 Methicillin resistant Staphylococcus aureus (MRSA) screening culture - 15:50 Methicillin resistant Staphylococcus aureus (MRSA) screening culture NEG NRG Complete urinalysis with reflex to culture - 07/17/18 15:55 Urine color determination YELLOW NRG Urine clarity determination VERY CLOUDY NRG Urine pH measurement by test strip 6 5-9 Specific gravity of urine by test strip 1.020 1.016- 1.022 Urine protein assay by test strip, semi-quantitative 2+ NEGATIVE Urine glucose detection by automated test strip NEGATIVE NEGATIVE Erythrocytes detection in urine sediment by light microscopy 3+ NEGATIVE Urine ketones detection by automated test strip NEGATIVE NEGATIVE Urine nitrite detection by test strip POSITIVE NEGATIVE Urine total bilirubin detection by test strip NEGATIVE NEGATIVE Urine urobilinogen measurement by automated test strip (mass/volume) NORMAL NORMAL Urine leukocyte esterase detection by dipstick 3+ NEGATIVE Automated urine sediment erythrocyte count by microscopy (number/high power field) [HPF] NRG Automated urine sediment leukocyte count by microscopy (number/high power field ) TNTC NRG Bacteria detection in urine sediment by light microscopy LARGE NRG Squamous epithelial cells detection in urine sediment by light microscopy 5-10 NRG Crystals detection in urine sediment by light microscopy NONE NRG Casts detection in urine sediment by light microscopy NONE NRG Mucus detection in urine sediment by light microscopy NEGATIVE NRG Complete urinalysis with reflex to culture YES NRG Bacterial urine culture - 07/17/18 15:55 Bacterial urine culture [id number] NRG COLONY COUNT >100,000/ML NRG FREE TEXT ENTRY 2 RML PRELIMINARY REPORT SENT 07/18 16:05 NRG Complete blood count (CBC) with automated white blood cell (WBC) differential - 07/17/18 16:00 Blood leukocytes automated count (number/volume) 9.2 10*3/uL 4.3-11.0 Blood erythrocytes automated count (number/volume) 3.57 10*6/uL 4.35-5.85 Venous blood hemoglobin measurement (mass/volume) 11.3 g/dL 11.5-16.0 Blood hematocrit (volume fraction) 35 % 35-52 Automated erythrocyte mean corpuscular volume 97 [foz_us] 80-99 Automated erythrocyte mean corpuscular hemoglobin (mass per erythrocyte) 32 pg 25-34 Automated erythrocyte mean corpuscular hemoglobin concentration measurement ( mass/volume) 33 g/dL 32-36 Automated erythrocyte distribution width ratio 15.0 % 10.0-14.5 Automated blood platelet count (count/volume) 378 10*3/uL 130-400 Automated blood platelet mean volume measurement 9.6 [foz_us] 7.4-10.4 Automated blood neutrophils/100 leukocytes 48 % 42-75 Automated blood lymphocytes/100 leukocytes 23 % 12-44 Blood monocytes/100 leukocytes 16 % 0-12 Automated blood eosinophils/100 leukocytes 11 % 0-10 Automated blood basophils/100 leukocytes 2 % 0-10 Blood neutrophils automated count (number/volume) 4.4 10*3 1.8-7.8 Blood lymphocytes automated count (number/volume) 2.2 10*3 1.0-4.0 Blood monocytes automated count (number/volume) 1.5 10*3 0.0-1.0 Automated eosinophil count 1.0 10*3/uL 0.0-0.3 Automated blood basophil count (count/volume) 0.2 10*3/uL 0.0-0.1 Whole blood basic metabolic panel - 07/17/18 16:00 Serum or plasma sodium measurement (moles/volume) 141 mmol/L 135-145 Serum or plasma potassium measurement (moles/volume) 4.4 mmol/L 3.6-5.0 Serum or plasma chloride measurement (moles/volume) 110 mmol/L 98-107 Carbon dioxide 22 mmol/L 21-32 Serum or plasma anion gap determination (moles/volume) 9 mmol/L 5-14 Serum or plasma urea nitrogen measurement (mass/volume) 16 mg/dL 7-18 Serum or plasma creatinine measurement (mass/volume) 0.82 mg/dL 0.60-1.30 Serum or plasma urea nitrogen/creatinine mass ratio 20 NRG Serum or plasma creatinine measurement with calculation of estimated glomerular filtration rate > NRG Serum or plasma glucose measurement (mass/volume) 105 mg/dL 70-105 Serum or plasma calcium measurement (mass/volume) 9.8 mg/dL 8.5-10.1 Encounters ACCT No. Visit Date/Time Discharge Status Pt. Type Provider Facility Loc./Unit Complaint [id number] 07/17/2018 15:07:00 07/17/2018 23:59:59 CLS Outpatient FER MCGINNIS DO [facility] PREOP UTERINE VAGINAL PROLAPSE [id number] 06/02/2016 06:22:00 06/02/2016 11:46:00 DIS Outpatient CATHRYN VELASCO MD [facility] BILATERAL CHRONIC PANSINITIS [id number] 05/26/2016 12:26:00 05/26/2016 13:20:00 DIS Outpatient CATHRYN VELASCO MD [facility] PREOP BILATERAL CHRONIC PANSINITIS [id number] 05/08/2014 07:25:00 05/08/2014 23:59:59 CLS Outpatient FER MCGINNIS DO [facility] RAD SCREENING [id number] 04/01/2013 10:00:00 04/01/2013 23:59:59 CLS Outpatient FER MCGINNIS DO [facility] RAD SCREENING [id number] 07/24/2018 11:30:00 ACT Preadmit FER MCGINNIS DO [facility] UTERINE VAGINAL PROLAPSE [id number] 07/17/2018 15:08:00 Document Registration [id number] 04/18/2018 13:04:00 Document Registration [id number] 04/13/2018 20:18:00 Document Registration [id number] 05/28/2018 09:56:00 05/28/2018 23:59:00 DIS Outpatient Yolis Riojas [id number] 05/24/2018 11:02:00 05/24/2018 23:59:00 DIS Outpatient Yolis Riojas [id number] 05/21/2018 09:31:00 05/21/2018 23:59:00 DIS Outpatient Yolis Riojas [id number] 05/20/2018 06:54:00 05/20/2018 08:48:00 DIS Outpatient [facility] [id number] 05/19/2018 08:53:00 05/19/2018 23:59:00 DIS Outpatient Yolis Riojas [id number] 05/17/2018 10:07:00 05/17/2018 23:59:00 DIS Outpatient Yolis Riojas [id number] 05/14/2018 09:17:00 05/14/2018 23:59:00 DIS Outpatient Yolis Riojas [id number] 05/10/2018 16:30:00 05/12/2018 08:38:00 DIS Inpatient [facility] MED-SURG [id number] 05/10/2018 14:42:00 05/10/2018 23:59:00 DIS Outpatient Yolis Riojas [id number] 05/04/2018 09:12:00 05/04/2018 23:59:00 DIS Outpatient Yolis Riojas [id number] 04/27/2018 09:01:00 04/27/2018 23:59:00 DIS Outpatient Yolis Riojas [id number] 04/25/2018 10:33:00 04/25/2018 23:59:00 DIS Outpatient Yolis Riojas [id number] 04/24/2018 10:59:00 04/24/2018 23:59:00 DIS Outpatient Yolis Riojas [id number] 04/18/2018 13:04:00 04/23/2018 09:30:00 DIS Inpatient [facility] ICU [id number] 04/13/2018 20:18:00 04/18/2018 13:04:00 DIS Inpatient [facility] ICU [id number] 03/14/2018 13:15:00 03/14/2018 23:59:00 DIS Outpatient Yolis Riojas [id number] 01/25/2018 11:39:00 01/25/2018 23:59:00 DIS Outpatient Yolis Riojas [id number] 12/19/2017 06:57:00 12/19/2017 23:59:00 DIS Outpatient Yolis Riojas [id number] 07/25/2017 13:15:00 07/25/2017 23:59:00 DIS Outpatient Yolis Riojas [id number] 03/02/2017 06:15:00 03/02/2017 23:59:00 DIS Outpatient Yolis Riojas [id number] 12/09/2016 13:21:00 12/09/2016 23:59:00 DIS Outpatient Yolis Riojas [id number] 12/07/2016 13:05:00 12/07/2016 23:59:00 DIS Outpatient Shine Yolis [id number] 09/08/2016 08:01:00 09/08/2016 23:59:00 DIS Outpatient Yolis Riojas [id number] 04/30/2018 08:21:59 Document Registration [id number] 04/13/2018 20:22:32 Document Registration
[2018-07-24] MEDS ORDERED: SEVOFLURANE (ULTANE) 15 ML INHAL SOLN ONE ×9 (10:58→13:03)
[2018-07-24] MEDS ORDERED: FUROSEMIDE 40 MG/4 ML INJ (LASIX) ONE (13:01)
[2018-07-24] MEDS ORDERED: morphine INJ 10 MG/ML 1ML (SYR OR VIAL) IVP ONE (13:30)
[2018-07-24] MEDS ORDERED: ONDANSETRON 4 MG/2 ML (SDV) Z0FRAN IVP PRN ×2 (13:30→13:45)
--- NOTE | 2018-07-24 13:33 | Operative Report ---
Operative Report Date of Procedure/Surgery Jul 24, 2018 Surgeon (s) FER MCGINNIS DO Rotary Shear Operator (s): Lilian Martinez, MANAGER APPLE; Ravinder Owens, MS III Post-Operative Diagnosis complete uterovaginal prolapse, Procedure Performed colpocleisis, Solyx vaginal sling with cystoscopy Description of Procedure Estimated blood loss (mL): 100 Specimen(s) collected/removed vaginal tissue Description of the Procedure 4th deg uterine prolapse/ bladder with crypts Preoperative UTI Findings of the Procedure With informed consent patient was taken to the operating room where general anesthetic was found to be adequate. She was prepped and draped in the usual sterile fashion in the dorsal lithotomy position taking care to protect her bilateral hips with history of hip replacement. A Valladares catheter was placed in the bladder. Wthe patient had UTI noted on preoperative UA and had not yet started antibiotics. This urine is cloudy. she will be continued on antibiotics while an inpatient and at home due to preexisting UTI. The cervix was grasped with two tenacula and noted to be prolapsed out completely, though there is not complete vaginal prolapse. There is mainly an anterior prolapse but some rectocele. The uterus is small. A modified Lafort was done (leaving the uterus and ovaries in situ). At this point I now proceeded with colpocleisis. I removed a rectangular portion of the anterior vaginal wall and removed the posterior vaginal tissue as well that had been previously dissected. I did place a Solyx pubovaginal sling at this time due to the rotation of the urethra and to prevent de nancy incontinence. I injected the periurethral spaces with dilute vasopressin and then dissected laterally with the Metzenbaum scissors. I placed the Solyx sling in standard fashion bilaterally so it lay loosly under the urethra. And did not kink. A cystoscopy was done revealing crypts in the bladder, likely due to chronic infection and the prolapse. I now closed to the vaginal vault with interrupted sutures of 2-0 Vicryl approximating the anterior and posterior vaginal wall together. And this closed the vaginal vault up to the bladder neck. The urethra again was very well supported. The the pubovesical fascia was progressively plicated anteriorly and the perirectal fascia posteriorly with Lembert inverting sutures of 2-0 Vicryl. 300 ml of fluid was left in the bladder and she had little leakage after Cred. The vaginal vault is now 4 cm x 3 cm. A wide perineorrhaphy was now done. I injected the perineum with dilute vasopressin and then incised the perineum with a scalpel and removed a pyramidal section I then plicated the perineum with interrupted 2-0 Vicryl and then closed with 3-0 Vicryl in a running locked fashion. This closed the introitus to about 3 cm. The Valladares catheter was reinserted. the patient was awakened and taken to the recovery room in stable fashion. Sponge, lap, needle and instrument counts correct times two. Allergies and Home Medications Allergies Coded Allergies: Sulfa (Sulfonamide Antibiotics) (Unverified Allergy, Mild, N/V, PAIN, ) Home Medications Alendronate Sodium 70 Mg/75 Ml Solution, 70 MG PO WEEK, (Reported) Aspirin 81 Mg Tablet.dr, 81 MG PO DAILY, (Reported) Aspirin/Dipyridamole 1 Each Cpmp.12hr, 1 EACH PO BID, (Reported) Ciprofloxacin HCl 500 Mg Tablet, 500 MG PO BID Prescribed by: FER MCGINNIS on 07/26/18 0951 Docusate Sodium 100 Mg Capsule, 100 MG PO BID Prescribed by: FER MCGINNIS on 07/26/18 0951 Gabapentin 300 Mg Capsule, 300 MG PO QID, (Reported) Hydromorphone HCl 2 Mg Tablet, 2 MG PO TID, (Reported) L. Acidophilus/Bulgaricus 1 Each Tab.chew, 1 EACH PO QID Prescribed by: FER MCGINNIS on 07/26/18 1033 Montelukast Sodium 10 Mg Tablet, 10 MG PO DAILY, (Reported) Simvastatin 20 Mg Tablet, 20 MG PO HS, (Reported) Verapamil HCl 180 Mg Cap24h.pel, 180 MG PO DAILY, (Reported) [juice plus garden] , 1 TAB PO BID, (Reported) [juice plus orchard] , 1 TAB PO BID, (Reported) Patient Home Medication List Home Medication List Reviewed: FER Mishra DO Jul 24, 2018 13:33
[2018-07-24] MEDS ORDERED: HYDROcodone/APAP 5 MG/325 MG (LORTAB) TAB PO PRN (13:45)
[2018-07-24] MEDS ORDERED: PATIENT MAY USE OWN MEDS, ALL MC SCH (14:00)
[2018-07-24] MEDS: PHENAZOPYRIDINE 100 MG (PYRIDIUM) TABLET PO SCH ×2 (14:00→18:00)
[2018-07-24] MEDS ORDERED: fentaNYL INJECTION 100 MCG/2 ML AMP IVP ONE (14:00)
[2018-07-24] MEDS ORDERED: ACETAMINOPHEN 500 MG TAB (TYLENOL) PO PRN (14:00)
[2018-07-24] MEDS ORDERED: KETOROLAC 30 MG/ML VIAL ONE (14:05)
[2018-07-24] MEDS: KETOROLAC 15 MG/ML VIAL IVP SCH ×2 (14:07→20:32)
--- NOTE | 2018-07-24 14:55 | Anesthesia-General Post-Op ---
General Patient Condition Mental Status/LOC: Same as Preop Cardiovascular: Satisfactory Nausea/Vomiting: Absent Respiratory: Satisfactory Pain: Controlled Complications: Absent Post Op Complications Complications None Follow Up Care/Instructions Patient Instructions None needed. Anesthesia/Patient Condition Patient Condition Patient is doing well, no complaints, stable vital signs, no apparent adverse anesthesia problems. BLAYNE TIERNEY DO Jul 24, 2018 14:55
[2018-07-24] MEDS ORDERED: D5 LR IV SOLUTION 1,000 ML IV ONE (15:19)
[2018-07-24] MEDS ORDERED: VERAPAMIL SR 180 MG (CALAN SR) TAB PO ONE (16:22)
[2018-07-24] MEDS: HYDROmorphone (DILAUDID) 2 MG TAB PO PRN ×2 (16:26→20:30)
[2018-07-24] MEDS: VERAPAMIL SR 180 MG (CALAN SR) TAB PO SCH (16:27)
[2018-07-24] MEDS: D5 LR IV SOLUTION 1,000 ML IV SCH (16:32)
[2018-07-24] MEDS: GABAPENTIN 300 MG (NEURONTIN) CAP PO SCH ×2 (17:44→20:30)
[2018-07-24] MEDS ORDERED: PHENAZOPYRIDINE 100 MG (PYRIDIUM) TABLET PO SCH (18:00)
[2018-07-24] MEDS: DIPYRIDAMOLE/ASA ER CAPSULE (AGGRENOX) PO SCH (19:34)
[2018-07-24] MEDS ORDERED: GABAPENTIN 300 MG (NEURONTIN) CAP PO ONE (20:30)
[2018-07-24] MEDS: CIPROFLOXACIN IV 400MG/200ML 200 ML IV SCH (20:31)
[2018-07-24] MEDS ORDERED: VERAPAMIL PM 100 MG (VERELAN PM) CAP.SR.24H PO SCH (21:00)
[2018-07-24 23:05] LABS: BUN/CREATININE RATIO 18; CALCIUM 8.8 MG/DL (8.5-10.1); CARBON DIOXIDE 20 MMOL/L (21-32); CHLORIDE 102 MMOL/L (98-107); CREATININE SERUM 0.84 MG/DL (0.60-1.30); GFR ESTIMATED > 60; GLUCOSE 182 MG/DL (70-105); POTASSIUM 3.8 MMOL/L (3.6-5.0); SODIUM 134 MMOL/L (135-145)
[2018-07-25 00:34] VITALS: BP 85/55
[2018-07-25] MEDS: HYDROmorphone (DILAUDID) 2 MG TAB PO PRN ×3 (00:34→09:41)
[2018-07-25] MEDS: D5 LR IV SOLUTION 1,000 ML IV SCH ×2 (01:05→09:31)
[2018-07-25] MEDS: KETOROLAC 15 MG/ML VIAL IVP SCH (03:13)
[2018-07-25] MEDS ORDERED: NS IV 500 ML 500 ML IV ONE (03:30)
[2018-07-25] MEDS ORDERED: NS IV 500 ML 500 ML ONE (03:40)
[2018-07-25 03:45] VITALS: BP 87/54
[2018-07-25 06:10] LABS: BASOPHILS % (AUTO) 0 % (0-10); EOSINOPHILS % (AUTO) 0 % (0-10); HEMATOCRIT 30 % (35-52); HEMOGLOBIN 9.8 G/DL (11.5-16.0); LYMPHOCYTES # (AUTO) 1.5 X 10^3 (1.0-4.0); LYMPHOCYTES % (AUTO) 6 % (12-44); MEAN CORPUSCULAR HEMOGLOBIN 31 PG (25-34); MEAN CORPUSCULAR HGB CONC 32 G/DL (32-36); MEAN CORPUSCULAR VOLUME 97 FL (80-99); MEAN PLATELET VOLUME 9.4 FL (7.4-10.4); MONOCYTES # (AUTO) 1.9 X 10^3 (0.0-1.0); MONOCYTES % (AUTO) 8 % (0-12); NEUTROPHILS # (AUTO) 20.7 X 10^3 (1.8-7.8); NEUTROPHILS % (AUTO) 86 % (42-75); PLATELET COUNT 325 10^3/uL (130-400); RED BLOOD COUNT 3.13 10^6/uL (4.35-5.85); RED CELL DISTRIBUTION WIDTH 14.9 % (10.0-14.5); WHITE BLOOD COUNT 24.1 10^3/uL (4.3-11.0)
[2018-07-25 06:30] LABS: BUN/CREATININE RATIO 21; CALCIUM 8.4 MG/DL (8.5-10.1); CARBON DIOXIDE 21 MMOL/L (21-32); CHLORIDE 106 MMOL/L (98-107); CREATININE SERUM 0.84 MG/DL (0.60-1.30); GFR ESTIMATED > 60; GLUCOSE 168 MG/DL (70-105); POTASSIUM 3.8 MMOL/L (3.6-5.0); SODIUM 136 MMOL/L (135-145)
[2018-07-25 06:47] LABS: LYMPHOCYTES % (MANUAL) 5 %; MONOCYTES % (MANUAL) 6 %; NEUTROPHILS % (MANUAL) 89 %
[2018-07-25] MEDS: PHENAZOPYRIDINE 100 MG (PYRIDIUM) TABLET PO SCH ×2 (08:00→20:09)
[2018-07-25 09:30] VITALS: BP 85/49
[2018-07-25] MEDS: CIPROFLOXACIN IV 400MG/200ML 200 ML IV SCH ×2 (09:39→20:51)
[2018-07-25] MEDS: DOCUSATE SODIUM 100 MG (COLACE) CAP PO SCH ×2 (09:41→20:53)
[2018-07-25] MEDS: GABAPENTIN 300 MG (NEURONTIN) CAP PO SCH ×4 (09:41→20:54)
--- NOTE | 2018-07-25 10:50 | Physical Therapy Evaluation ---
PT Evaluation-General Medical Diagnosis Admission Date 07/24/2018 Medical Diagnosis: Uterine Prolapse Onset Date: Jul 24, 2018 Therapy Diagnosis Therapy Diagnosis: weakness Height/Weight Height (Feet): 5 Height (Inches): 2.00 Weight (Pounds): 137 Weight (Ounces): 8.0 Precautions Precautions/Isolations: Standard Precautions Referral Physician: Gerald Reason for Referral: Evaluation/Treatment (to determine if she is able to mobilize at home) Medical History Pertinent Medical History: CVA Current History Pt had vaginal procedure for Uterine Prolapse. Reviewed History: Yes Social History Home: Single Level ([facility]) Entry Into Home: Level Entry Prior/Core FIM Prior Level of Function Functional [place] Measure 0=Not Assessed/NA 4=Minimal Assistance 1=Total Assistance 5=Supervision or Setup 2=Maximal Assistance 6=Modified [place] 3=Moderate Assistance 7=Complete [place] IRFPAI Quality Coding Scale 6 Independent with activity with or without an assistive device 5 Patient requires set up or clean up by helper. Patient completes activity by themselves 4 Supervision or touching assist (CGA). [place] provide cues , steadying assist 3 The helper provides less than half the effort to complete the activity 2 The helper provides more than half the effort to complete the activity 1 Dependent. The helper does all the effort to complete an activity 7 Patient refused to complete or attempt activity 9 The patient did not perform the activity before the current illness or injury 88 Not attempted due to Medical conditions or safety concerns Functional Abilities and Goals 3. Independent: Patient completed the activities by him/herself, with or without an assistive device, with no assistance from a helper. 2. Needed Some Help: Patient needed partial assistance from another person to complete activities. 1. Dependent: A helper completed the activities for the patient. 8. Unknown: 9. Not Applicable: Bed Mobility: 6 Transfers (B,C,W/C) (FIM): 6 Gait: 6 (4WW in her apartment; power chair out of her apartment) Indoor Mobility (Ambulation): Independent Stairs: Not [place] Prior Devices Use: Manual wheelchair, Motorized wheelchair, Walker PT Evaluation-Current Subjective Agreeable to PT. hopes to go home today. Post treatment, pt and spouse voiced that they felt she could manage at home. Pain Numeric Pain Scale: 0-No Pain Location: No Pain Reported Objective Patient Orientation: Person, Place, Time, Situation Attachments: Valladares Catheter, IV ROM/Strength ROM Lower Extremities WFL Strength Lower Extremities WFL; left LE foot drop Integumentary/Posture Integumentary refer to nursing notes Bowel Incontinence: No Bladder Incontinence: Valladares Cath Posture normal and symmetrical Neuromuscular (Tone, Coordination, Reflexes) WFL Sensory Vision: Wears Glasses Hearing: Functional Hand Dominance: Right Sensation Right Lower Extremit: Intact Sensation Left Lower Extremity: Intact Transfers Functional [place] Measure 0=Not Assessed/NA 4=Minimal Assistance 1=Total Assistance 5=Supervision or Setup 2=Maximal Assistance 6=Modified [place] 3=Moderate Assistance 7=Complete [place] Transfers (B, C, W/C) (FIM): 6 Supine to/from Sit: 6 Sit to/from Stand: 6 Gait Mode of Locomotion: Walk Anticipated Mode of Locomotion: Walk Gait Assistive Device: FWW Comments/Gait Description Pt ambulated x 50 ft with FWW without assist; she did not have her AFO but was able to compensate with hip hike to clear her toes. Safe and steady gait. No additional assist needed. Balance Sitting Static: Good Sitting Dynamic: Good Standing Static: Good Standing Dynamic: Good Assessment/Needs Pt able to complete transfers, bed mobiltiy and gait as before. Appears safe to return to her [facility] with her . Rehab Potential: Good PT [employer] Goals Snf Goals NO follow up PT indicated; therefore no goals set PT Plan Treatment/Plan Treatment Plan: Discontinue PT Treatment Plan: Other Treatment Duration: Jul 25, 2018 Frequency: Estimated Hrs Per Day: Other Patient and/or Family Agrees t: Yes Safety Risks/Education Patient Education: Transfer Techniques, Safety Issues Teaching Recipient: Patient Teaching Methods: Demonstration, Discussion Response to Teaching: Return Demonstration Discharge Recommendations Plan DC PT. Pt safe with functional mobility. Time/GCodes Time In: 1010 Time Out: 1030 Total Billed Treatment Time: 20 Total Billed Treatment visit EVL 20 G Codes Necessary: Yes PT/OT Therapy GCodes Therapy Functional Limitation: Physical Therapy Test(s)/Tool used to determine: Level of Assistance Scale Functional Limitation-Current Charge Code: MOBCUR Modifier: CI Functional Limitation-Goal Charge Code: MOBGOAL Modifier: CI Functional Limitation-D/C Charge Codes: MOBDC Modifier: CI RICHARD SHORE PT Jul 25, 2018 10:50
[2018-07-25] MEDS ORDERED: LACTATED RINGERS 1,000 ML IV SCH (11:45)
[2018-07-25] MEDS ORDERED: FUROSEMIDE 40 MG/4 ML INJ (LASIX) IVP NR (11:45)
[2018-07-25 12:14] LABS: BASOPHILS % (AUTO) 0 % (0-10); EOSINOPHILS # (AUTO) 0.1 10^3/uL (0.0-0.3); EOSINOPHILS % (AUTO) 1 % (0-10); HEMATOCRIT 31 % (35-52); LYMPHOCYTES # (AUTO) 2.3 X 10^3 (1.0-4.0); LYMPHOCYTES % (AUTO) 10 % (12-44); MEAN CORPUSCULAR HEMOGLOBIN 31 PG (25-34); MEAN CORPUSCULAR HGB CONC 32 G/DL (32-36); MEAN CORPUSCULAR VOLUME 98 FL (80-99); MEAN PLATELET VOLUME 9.4 FL (7.4-10.4); MONOCYTES # (AUTO) 2.7 X 10^3 (0.0-1.0); MONOCYTES % (AUTO) 12 % (0-12); NEUTROPHILS # (AUTO) 18.3 X 10^3 (1.8-7.8); NEUTROPHILS % (AUTO) 78 % (42-75); PLATELET COUNT 311 10^3/uL (130-400); WHITE BLOOD COUNT 23.4 10^3/uL (4.3-11.0)
--- NOTE | 2018-07-25 14:16 | Physician Progress Note ---
Progress Note Assessment/Plan Date Seen by Provider: Jul 25, 2018 Time Seen by Provider: 08:30 Events since last exam Patient had very little urine output during surgery and last night. Did have very bloody urine after surgery and was thought to be due to the cystoscopy. However, with low urine output, could not tell, so was given 1 dose of IV lasix. She also is complaining of pain in the left leg. She has had chronic pain in the right leg but not the left. She is unsure how to explain the pain but states it doesn't usually hurt. She has not been up nor ambulated bc of her stroke but nursing did not get her up either. She has not been taken oral fluids well. Meds were restarted last night but aggranox was held due to the blood in the urine. She has not had further bleeding but had not been up. Vaginal pack with removed this morning. Will order a PT consult to get her up and determine whether she iw back to baseline. They did not bring her walker. Hgb this am was 9.8 and creat was 0.82 Will continue IV fluids due to Decreased UO, continue Iv antibiotics due to known UTI (sens to Cipro) Will ambulate and continue IS. Continue SCds. Hold aggranox due to bleeding and hematuria. The bladder was irrigated this am and urine is much more clear but still concentrated. POD #1 s/p Colpocleisis and Solyx Pubovaginal sling. Assessment/Plan see above Vitals Last set of Vitals Signs Vital Signs Date Time Temp Pulse Resp B/P (MAP) Pulse Ox O2 Delivery O2 Flow Rate FiO2 07/25/18 09:30 98.4 65 18 85/49 (61) 96 Room Air I&O I&O Intake and Output 07/25/18 00:00 Intake Total 2340 ml Output Total 1455 ml Balance 885 ml Intake Oral 540 ml IV Total 1800 ml Output Urine Total 1455 ml Labs Laboratory Tests 07/24/18 22:05: Sodium Level 134L, Potassium Level 3.8, Chloride Level 102, Carbon Dioxide Level 20L, Anion Gap 12, Blood Urea Nitrogen 15, Creatinine 0.84, Estimat Glomerular Filtration Rate > 60, BUN/Creatinine Ratio 18, Glucose Level 182H, Calcium Level 8.8 07/25/18 05:55: Sodium Level 136, Potassium Level 3.8, Chloride Level 106, Carbon Dioxide Level 21, Anion Gap 9, Blood Urea Nitrogen 18, Creatinine 0.84, Estimat Glomerular Filtration Rate > 60, BUN/Creatinine Ratio 21, Glucose Level 168H, Calcium Level 8.4L, White Blood Count 24.1H, Red Blood Count 3.13L, Hemoglobin 9.8L, Hematocrit 30L, Mean Corpuscular Volume 97, Mean Corpuscular Hemoglobin 31, Mean Corpuscular Hemoglobin Concent 32, Red Cell Distribution Width 14.9H, Platelet Count 325, Mean Platelet Volume 9.4, Neutrophils (%) (Auto) 86H, Lymphocytes (%) (Auto) 6L, Monocytes (%) (Auto) 8, Eosinophils (%) (Auto) 0, Basophils (%) (Auto) 0, Neutrophils # (Auto) 20.7H, Lymphocytes # (Auto) 1.5, Monocytes # (Auto) 1.9H, Eosinophils # (Auto) 0.0, Basophils # (Auto) 0.0, Neutrophils % (Manual) 89, Lymphocytes % (Manual) 5, Monocytes % (Manual) 6 FER MCGINNIS DO Jul 25, 2018 14:16
--- NOTE | 2018-07-25 14:21 | Progress Note-Standard ---
Standard Progress Note Progress Notes/Assess & Plan Date Seen by a Provider: Jul 25, 2018 Time Seen by a Provider: 14:00 Progress/Assessment & Plan IV infiltrated so was restarted. She has been evaluated by PT and together they have determined that she is at baseline. She states that pain is 1-2 in the lower pelvis and much better since the removal of the packing. UO continues to be decreased. Pushing oral fluids but 500 ml bolus has again been given. BP was 80/40s so am Verapamil was held (though she is asymptomatic). She has not Had BM. RN just reported that getting her up from chair to bed she has blood on her innder thighs and down to her knees. Will start a pad count. However, her Hgb is 10 now (9.8 this am) so do not expect that she has had acute bleeding since the am. May have had bleeding that collected in the vaginal vault and then released with movement to have bleeding on the perineum UO 600 ml since the am. Have not finished the bolus however FER MCGINNIS DO Jul 25, 2018 14:21
[2018-07-25 15:55] VITALS: BP 109/61
[2018-07-25] MEDS ORDERED: BENZOCAINE/MENTHOL (DERMOPLAST) 56 ML CAN TP PRN (17:30)
[2018-07-25] MEDS: DIPYRIDAMOLE/ASA ER CAPSULE (AGGRENOX) PO SCH ×2 (20:07→20:08)
[2018-07-25] MEDS: VERAPAMIL SR 180 MG (CALAN SR) TAB PO SCH (20:53)
[2018-07-25 20:55] VITALS: BP 109/61
[2018-07-26 00:55] VITALS: BP 98/64
[2018-07-26 05:03] VITALS: BP 98/64
[2018-07-26] MEDS: HYDROmorphone (DILAUDID) 2 MG TAB PO PRN (05:03)
--- NOTE | 2018-07-26 06:11 | Progress Note-Standard ---
Standard Progress Note Progress Notes/Assess & Plan Date Seen by a Provider: Jul 25, 2018 Time Seen by a Provider: 17:30 Progress/Assessment & Plan Has been doing better. Ambulated. No flatus. UO has improved and is now clear. However, has had vaginal bleeding. Pad check shows decreased bleeding at this time. Pain is better controlled. However, due to the bleeding, UTI, elevated white count and decreased urine output. Will watch her for the night and the remove catheter in the morning. Will dc once she has voided. On exam she is smiling. Some mild discomfort in the left abdomen. The left leg pain has improved (right leg has pain all the time and she reports this is stable) There is a small spot of blood on the V pad but not soaked into the pad *just superficial). There is some blood on the perineum but RN states that she did pericare 2+ hours ago and there is minimal bleeding since that time. Gentle vaginal exam was done and the surgery is intact. There is old blood in the vault but not fresh active bleeding. Will still hold the Aggrenox and the ASA for today. Plan will be as above. Last BP was 109/68 so will hold her verapamil as well. FER MCGINNIS DO Jul 26, 2018 06:11
[2018-07-26] MEDS ORDERED: D5 LR IV SOLUTION 1,000 ML IV ONE (06:54)
[2018-07-26] MEDS: D5 LR IV SOLUTION 1,000 ML IV SCH (06:56)
[2018-07-26 08:15] VITALS: BP 97/57
[2018-07-26] MEDS: DIPYRIDAMOLE/ASA ER CAPSULE (AGGRENOX) PO SCH (08:33)
[2018-07-26] MEDS: PHENAZOPYRIDINE 100 MG (PYRIDIUM) TABLET PO SCH (08:33)
[2018-07-26] MEDS: DOCUSATE SODIUM 100 MG (COLACE) CAP PO SCH (08:33)
[2018-07-26] MEDS: GABAPENTIN 300 MG (NEURONTIN) CAP PO SCH (08:33)
[2018-07-26] MEDS: CIPROFLOXACIN IV 400MG/200ML 200 ML IV SCH (08:33)
[2018-07-26 09:14] LABS: BASOPHILS # (AUTO) 0.1 10^3/uL (0.0-0.1); BASOPHILS % (AUTO) 1 % (0-10); EOSINOPHILS # (AUTO) 0.4 10^3/uL (0.0-0.3); EOSINOPHILS % (AUTO) 3 % (0-10); HEMATOCRIT 33 % (35-52); HEMOGLOBIN 10.2 G/DL (11.5-16.0); LYMPHOCYTES % (AUTO) 13 % (12-44); MEAN CORPUSCULAR HEMOGLOBIN 31 PG (25-34); MEAN CORPUSCULAR HGB CONC 31 G/DL (32-36); MEAN CORPUSCULAR VOLUME 99 FL (80-99); MEAN PLATELET VOLUME 9.6 FL (7.4-10.4); MONOCYTES # (AUTO) 1.8 X 10^3 (0.0-1.0); MONOCYTES % (AUTO) 12 % (0-12); NEUTROPHILS # (AUTO) 11.1 X 10^3 (1.8-7.8); NEUTROPHILS % (AUTO) 72 % (42-75); PLATELET COUNT 305 10^3/uL (130-400); RED BLOOD COUNT 3.29 10^6/uL (4.35-5.85); RED CELL DISTRIBUTION WIDTH 15.1 % (10.0-14.5); WHITE BLOOD COUNT 15.4 10^3/uL (4.3-11.0)
[2018-07-26] MEDS ORDERED: DOCU100C37 PO (09:51)
[2018-07-26] MEDS ORDERED: CIPR-225 PO (09:51)
--- NOTE | 2018-07-26 10:30 | Discharge Inst-Women's Service ---
Discharge Inst-Women's Serv Depart Medication/Instructions New, Converted or Re-Newed RX: RX on Chart Instructions expect light bleeding, spotting for up to two weeks please call if inability to empty bladder may have some incontinence that should improve slowly as the inflammation improves and the UTI clears up Final Diagnosis UTI Recurrent UTI complete urogenital prolapse Cystocele history of CVA decreased urinary output Consults/Follow Up Additional Follow Up: Yes (1-2 weekw ith Brenda Villarreal, 6 weeks with Gerald) Activity Activity: Activity as Tolerated Driving Instructions: No Driving/Refer to NO SMOKING: NO SMOKING Nothing Inside Vagina: No Douching, No [place], No Tampons Diet Discharge Diet: No Restrictions Symptoms to Report to : Bleeding Excessive, Pain Increased, Urine Color Change, Fever Over 101 Degrees F, Vaginal Bleeding Increase, Cramps in Feet or Legs, Vaginal Discharge Foul For Any Problems or Questions: Contact Your Physician Skin/Wound Care Bathing Instructions: Shower (OK to use shower seat) FER MCGINNIS DO Jul 26, 2018 10:29
[2018-07-26] MEDS ORDERED: ACID1TAB5 PO (10:33)
== END 2018-07-26 12:40 | disposition home or self-care (01) ==
LOC: SDC 09:40 → EDSTATUS 11:30 → WS 14:30 → LDRP 07-26 12:35 → SDC 07-26 12:40 → LDRP 07-26 16:25 → WS 07-26 16:27
PROVIDERS: ATTEND Obstetrics & Gynecology
DX: N81.3 Complete uterovaginal prolapse (principal); N39.0 Urinary tract infection, site not specified; I10 Essential (primary) hypertension; E78.5 Hyperlipidemia, unspecified; R31.9 Hematuria, unspecified; M79.605 Pain in left leg; Z86.73 Personal history of transient ischemic attack (TIA), and cerebral infarction without residual deficits; Z86.718 Personal history of other venous thrombosis and embolism; Z79.82 Long term (current) use of aspirin; Z79.899 Other long term (current) drug therapy
CPT/HCPCS: 36415; 80048; 85007; 85025; 85027; 88305; 94664